=== PATIENT | female | born 1930 | race Caucasian/White ===

== ENCOUNTER 2017-01-08 09:24 | Outpatient (CLI) | payer MEDICARE, OTHER ==
[2014-03-20 19:30] VITALS: BP 146/77
== END 2017-01-08 09:25 ==
LOC: LAB 09:24
PROVIDERS: ATTEND Family Medicine
DX: E11.9 Type 2 diabetes mellitus without complications (principal)
CPT/HCPCS: 36415; 83036

== ENCOUNTER 2017-03-29 08:49 | Outpatient (CLI) | payer MEDICARE, OTHER ==
[2014-03-20 19:30] VITALS: BP 146/77
[2017-03-29 09:35] LABS: eGFR (African) > 60; eGFR (Non-African) > 60
== END 2017-03-29 08:50 ==
LOC: LAB 08:49
PROVIDERS: ATTEND Internal Medicine Cardiovascular Disease
DX: I25.10 Atherosclerotic heart disease of native coronary artery without angina pectoris (principal)
CPT/HCPCS: 36415; 80048

== ENCOUNTER 2017-04-16 16:34 | Outpatient (CLI) | payer MEDICARE, OTHER ==
[2014-03-20 19:30] VITALS: BP 146/77
[2017-04-16 17:06] LABS: BASOPHILS % 0.3 (0.0-1.5); EOSINOPHILS % 0.6 % (0.0-6.8); MEAN CORPUSCULAR HEMOGLOBIN 34.3 pg (28.0-34.0); MEAN CORPUSCULAR VOLUME 94.8 fl (80.0-100.0); MONOCYTES % 3.1 % (0.0-11.0); NEUTROPHILS # 7.6 # k/uL (1.4-7.7)
[2017-04-16 17:18] LABS: eGFR (African) > 60; eGFR (Non-African) > 60
== END 2017-04-16 16:35 ==
LOC: LAB 16:34
PROVIDERS: ATTEND Internal Medicine Cardiovascular Disease
DX: E11.9 Type 2 diabetes mellitus without complications (principal); I25.10 Atherosclerotic heart disease of native coronary artery without angina pectoris; E78.00 Pure hypercholesterolemia, unspecified
CPT/HCPCS: 36415; 80053; 83036; 85025

== ENCOUNTER → 2017-07-18 | Outpatient (CLI) | payer MEDICARE, OTHER ==
[2014-03-20 19:30] VITALS: BP 146/77
[2017-07-18 10:20] LABS: eGFR (African) > 60; eGFR (Non-African) > 60
== END ==
LOC: LAB 09:43
PROVIDERS: ATTEND Family Medicine
DX: E11.9 Type 2 diabetes mellitus without complications (principal)
CPT/HCPCS: 36415; 80053; 80061; 83036

== ENCOUNTER 2017-08-08 15:04 | Outpatient (CLI) | payer MEDICARE, OTHER ==
[2014-03-20 19:30] VITALS: BP 146/77
--- NOTE | 2017-08-08 15:42 | Diagnostic Imaging Report ---
LOUIE GONAZLEZ [facility] [id number] Formerly [facility], 1927[address] [address] Report Submission Date: Aug 08, 2017 3:31:31 PM CDT Patient Study Name: ELIEZER FRANKLIN Date: Aug 08, 2017 3:09:59 PM CDT Modality Type: CR Gender: F Description: LOWER EXTREMITY : 32 Institution: [facility] Physician: LOUIE GONZALEZ Examination: Plain film tibia/fibula History: Fall Comparison exams: None available Findings: 2 views of the tibia fibula demonstrates generalized osteopenia. 2 fixation screws within the distal fibula. Old distal fibular fracture. Articular degenerative changes involving both the knee and ankle are regions. No displaced fracture line. No soft tissue abnormality. Impression: No acute osseous abnormality. Articular degenerative changes. Electronically signed on Aug 08, 2017 3:31:31 PM CDT by: Hosea FERRERA
== END 2017-08-08 15:05 ==
LOC: RAD 15:04
PROVIDERS: ATTEND Family Medicine
DX: M79.604 Pain in right leg (principal)
CPT/HCPCS: 73590

== ENCOUNTER 2017-10-08 14:04 | Outpatient (CLI) | payer MEDICARE, OTHER ==
[2014-03-20 19:30] VITALS: BP 146/77
== END 2017-10-08 14:05 ==
LOC: LAB 14:04
PROVIDERS: ATTEND Family Medicine
DX: R41.3 Other amnesia (principal); E11.9 Type 2 diabetes mellitus without complications
CPT/HCPCS: 36415; 83036; 84443

== ENCOUNTER 2018-03-20 08:42 | Outpatient (CLI) | payer MEDICARE, OTHER ==
[2014-03-20 19:30] VITALS: BP 146/77
[2018-03-20 09:18] LABS: MEAN CORPUSCULAR HEMOGLOBIN 28.3 pg (28.0-34.0); MEAN CORPUSCULAR VOLUME 88.9 fl (80.0-100.0)
[2018-03-20 09:43] LABS: eGFR (African) > 60; eGFR (Non-African) > 60
[2018-03-20 09:56] LABS: BASOPHILS % 2 % (0-2); EOSINOPHILS % 8 % (0-7); MONOCYTES % 6 % (0-11); SEGMENTED NEUTROPHILS % 60 % (39-79)
== END 2018-03-20 08:50 ==
LOC: LAB 08:42
PROVIDERS: ATTEND Internal Medicine Cardiovascular Disease
DX: I10 Essential (primary) hypertension (principal); I44.2 Atrioventricular block, complete; E78.00 Pure hypercholesterolemia, unspecified
CPT/HCPCS: 36415; 80053; 80061; 84443; 85025

== ENCOUNTER 2018-03-25 10:35 | Outpatient (CLI) | payer MEDICARE, OTHER ==
[2014-03-20 19:30] VITALS: BP 146/77
== END 2018-03-25 10:36 ==
LOC: LAB 10:35
PROVIDERS: ATTEND Internal Medicine Cardiovascular Disease
DX: I33.9 Acute and subacute endocarditis, unspecified (principal)
CPT/HCPCS: 36415; 87040

== ENCOUNTER 2018-05-28 10:13 | Outpatient (CLI) | payer MEDICARE, OTHER ==
[2014-03-20 19:30] VITALS: BP 146/77
== END 2018-05-28 10:15 ==
LOC: LAB 10:13
PROVIDERS: ATTEND Family Medicine
DX: R79.89 Other specified abnormal findings of blood chemistry (principal); E11.9 Type 2 diabetes mellitus without complications
CPT/HCPCS: 36415; 83036; 84443

== ENCOUNTER 2018-12-18 14:50 | Outpatient (CLI) | payer MEDICARE, OTHER ==
[2014-03-20 19:30] VITALS: BP 146/77
== END 2018-12-18 14:53 ==
LOC: LABRHC 14:50
PROVIDERS: ATTEND Family Medicine
DX: E11.9 Type 2 diabetes mellitus without complications (principal)
CPT/HCPCS: 83036

== ENCOUNTER 2019-06-18 08:10 | Outpatient (CLI) | payer MEDICARE, OTHER ==
[2014-03-20 19:30] VITALS: BP 146/77
== END 2019-06-18 08:12 ==
LOC: LAB 08:10
PROVIDERS: ATTEND Family Medicine
DX: E55.9 Vitamin D deficiency, unspecified (principal)
CPT/HCPCS: 36415; 82306

== ENCOUNTER 2019-09-08 09:15 | Observation (INO) | payer MEDICARE, OTHER ==
[2014-03-20 19:30] VITALS: BP 146/77
[2019-09-08] MEDS ORDERED: NORMAL SALINE 1,000 ML IV.SOLN IV ONE ×3 (11:00→21:56)
[2019-09-08] MEDS ORDERED: ONDANSETRON HCL/PF 4 MG/ 2ML VIAL ONE (11:00)
[2019-09-08] MEDS ORDERED: CIPROFLOXACIN IN 5 % DEXTROSE 400 MG/200 ML BAG IV ONE ×2 (11:00→21:56)
[2019-09-08] MEDS ORDERED: metroNIDAZOLE/SODIUM CHLORIDE 500 MG/100 ML BAG IV ONE ×2 (12:54→20:07)
[2019-09-08] MEDS ORDERED: DIPHENOXYLATE /ATROPINE 2.5MG-0.025MG TABLET PO ONE (18:42)
[2019-09-08] MEDS ORDERED: FAMOTIDINE 20 MG/2 ML VIAL IV ONE (20:08)
[2019-09-09] MEDS ORDERED: metroNIDAZOLE/SODIUM CHLORIDE 500 MG/100 ML BAG IV ONE (05:48)
[2019-09-09] MEDS ORDERED: FAMOTIDINE 20 MG/2 ML VIAL IV ONE (08:10)
[2019-09-17 09:29] LABS: BASOPHILS % 0.5 % (0.0-1.5); NEUTROPHILS # 7.6 # k/uL (1.4-7.7); SEGMENTED NEUTROPHILS % 82 % (39-79)
[2019-09-17 09:30] LABS: eGFR (Non-African) 19
[2019-09-17 09:56] LABS: APPEARANCE,URINE CLOUDY (CLEAR); COLOR,URINE YELLOW (YELLOW); OCCULT BLOOD,URINE 2+ (NEGATIVE); PH URINE 5.5 (5.0 - 8.0); UROBILINOGEN URINE 0.2 Eu (0.2-1.0)
[2019-09-17 10:32] LABS: BASOPHILS % 0.2 % (0.0-1.5); NEUTROPHILS # 3.4 # k/uL (1.4-7.7); eGFR (Non-African) 42
== END 2019-09-09 08:55 | disposition home or self-care (01) ==
LOC: ED 09:15 → SOUTH 12:03
PROVIDERS: ADMIT Family Medicine; ATTEND Nurse Practitioner Family
DX: E86.1 Hypovolemia (principal); R19.7 Diarrhea, unspecified
CPT/HCPCS: 80053; 81002; 82150; 83690; 85025; 87045; 87046; 87086; 87177; 87209; 87427; 87493; 96374; 96375; 96376; 99218; 99283; 99284; G0378; J0744; J2405; J3490; J7030; S1016

== ENCOUNTER 2019-10-15 16:07 | Outpatient (CLI) | payer MEDICARE, OTHER ==
[2014-03-20 19:30] VITALS: BP 146/77
[2019-10-15 16:37] LABS: A1C 6.1 % (<5.7)
[2019-10-15 17:09] LABS: eGFR (Non-African) > 60
== END 2019-10-15 16:12 ==
LOC: LAB 16:07
PROVIDERS: ATTEND Family Medicine
DX: E11.9 Type 2 diabetes mellitus without complications (principal); D64.9 Anemia, unspecified
CPT/HCPCS: 36415; 80048; 83036; 85027

== ENCOUNTER 2019-12-15 16:05 | Outpatient (CLI) | payer MEDICARE, OTHER ==
[2014-03-20 19:30] VITALS: BP 146/77
--- NOTE | 2019-12-15 16:25 | Diagnostic Imaging Report ---
PATIENT MR#: [id number] PATIENT PATIENT NAME: ELIEZER FRANKLIN DATE OF : 1930 REFERRING PHYSICIAN: Alexia Lang EXAM DATE: 12/15/2019 ACCESSION NUMBER: [id number] EXAM DESCRIPTION: CHEST 2VIEW HISTORY: Cough and shortness of breath. COMPARISON: None provided. CHEST RADIOGRAPH, FRONTAL AND LATERAL: Upper mediastinum: Atherosclerotic calcification of the aortic arch. Heart: No cardiomegaly. Dual lead cardiac pacer. CABG clips and stents noted. Lungs: No lobar infiltrate, pulmonary edema, pneumothorax or significant effusion. Skeleton: Median sternotomy. IMPRESSION: No acute thoracic process. Read by: Dr. Koffi Velazquez Transcribed by: Koffi Velazquez Transcribed Date: 12/15/2019 4:24:30 PM Electronically signed by: Dr. Koffi Velazquez Date signed: 12/15/2019 4:24:30 PM
== END 2019-12-15 16:15 ==
LOC: RAD 16:05
PROVIDERS: ATTEND Family Medicine
DX: R05 Cough (principal)